=== PATIENT | female | born 1960 | race Asian ===

== ENCOUNTER 2021-08-23 05:14 | Emergency (ER) | payer BC ==
[~2021-08-23] VITALS: Ht 147.3 cm; Wt 59.9 kg
[~2021-08-23 05:14] MED LIST: CA C1TAB95 PO; LOSA1TAB54 PO; SIMVASTATIN PO
[2021-08-23 05:29] VITALS: BP 183/98
[2021-08-23] MEDS ORDERED: ACET-2079 PO (06:06)
[2021-08-23] MEDS ORDERED: VALA10002 PO (06:06)
[2021-08-23] MEDS ORDERED: SULF1TAB42 PO (06:06)
== END 2021-08-23 06:16 | disposition home or self-care (01) ==
LOC: EDH 05:14
DX: B02.9 Zoster without complications (principal); L03.313 Cellulitis of chest wall; E78.00 Pure hypercholesterolemia, unspecified; I10 Essential (primary) hypertension; Z79.899 Other long term (current) drug therapy

== ENCOUNTER → 2025-04-02 | Outpatient (CLI) | payer MEDICARE ==
[~2025-04-02] MED LIST changes: +ACET-2079 PO; +SULF1TAB42 PO; +VALA10002 PO
== END | disposition home or self-care (01) ==
LOC: RAH 09:32
PROVIDERS: ATTEND Family Medicine
DX: Z12.31 Encounter for screening mammogram for malignant neoplasm of breast (principal)
CPT/HCPCS: 77067

== ENCOUNTER → 2025-05-01 | Outpatient (CLI) | payer MEDICARE ==
--- NOTE | 2025-05-03 10:34 | HMCIMG ---
BILATERAL BREAST ULTRASOUND: CLINICAL HISTORY: Follow-up for mammogram from 05/01/2025. Finding: Real-time examination of the both breasts demonstrates heterogeneous echotexture throughout both the breasts without evidence of focal solid or cystic masses. IMPRESSION: Dense breasts with no mass seen. I would recommend annual mammography with bilateral breast sonogram. FINAL ASSESSMENT: ACR: BI-RAD- 2. Benign Finding.
--- NOTE | 2025-05-06 13:11 | HMCIMG ---
DIGITAL left DIAGNOSTIC MAMMOGRAM Technique: The digital mammographic examination of left in craniocaudal, mediolateral oblique views along with CAD was obtained. Ultrasound of both breasts were also obtained. History: This is a 64 years year-old female 0, para0 Ab0 . Patient has no family history of breast cancer. Patient has no complaint patient is here for follow-up for mammogram due to density seen on the prior mammogram from 04/02/2025. Reference:Prior mammogram from 03/02/2025 Breast composition: Breast composition C: The breasts are heterogeneously dense, which may obscure small masses. Finding: The digital mammographic examination of left breast in craniocaudal and mediolateral oblique view along with CAD demonstrates moderately heterogeneously nodular dense. Ultrasound demonstrate no mass seen.. There is no evidence of any dendritic mass, cluster microcalcification or architectural distortion. The retromammary fat appears to be normal. IMPRESSION: No mass identified on the mammogram on ultrasound. NO RADIOGRAPHIC EVIDENCE OF MALIGNANT CHANGES. WE WOULD RECOMMEND ANNUAL FOLLOW UP WITH TOMOSYNTHESIS UNLESS OTHERWISE CLINICALLY INDICATED. I would recommend annual bilateral breast sonogram due to moderately heterogeneously nodular dense breasts FINAL ASSESSMENT: ACR: BI-RAD- 2. Benign Finding. NOTE: IF A WORK-UP OF THIS PATIENT LEADS TO A BIOPSY, PLEASE FORWARD A COPY OF THE PATHOLOGY REPORT TO OUR OFFICE REQUIRED BY SA EFFECTIVE FEBRUARY 06, 1994. A NEGATIVE MAMMOGRAM SHOULD NOT PRECLUDE BIOPSY OF A CLINICALLY PALPABLE SUSPICIOUS MASS, 10% OF BREAST CANCERS ARE MAMMOGRAPHICALLY OCCULT. THIS MAMMOGRAPHY FACILITY IS FULLY ACCREDITED BY THE FOOD AND DRUG [employer]MIN[employer]RATION (FDA). THANK YOU FOR THIS REFERRAL.
== END | disposition home or self-care (01) ==
LOC: RAH 12:49
PROVIDERS: ATTEND Family Medicine
DX: R92.333 Mammographic heterogeneous density, bilateral breasts (principal); R92.8 Other abnormal and inconclusive findings on diagnostic imaging of breast
CPT/HCPCS: 77065